=== PATIENT | male | born 1990 | race Caucasian/White ===

== ENCOUNTER 2017-04-22 09:32 | Emergency (ER) | payer OTHER ==
[~2017-04-22] VITALS: Ht 182.9 cm; Wt 99.8 kg
[~2017-04-22 09:32] MED LIST: ANAPROX DS550 MG PO; CLINDAMYCIN HC300 MG PO; CYCLOBENZAPRINE10 MG PO; FLEXERIL10 MG PO; HYDROCODON-ACE1 EAC8 PO; IBUPROFEN200 M1 PO; IBUPROFEN400 MG PO; IBUPROFEN600 MG PO; IBUPROFEN800 MG PO; MELOXICAM15 MG PO; NAPROSYN500 MG PO; NAPROXEN500 MG PO; NORCO 10-325 T1 EACH PO; NORCO 5-325 TA1 EACH PO; OXYCODONE-ACET1 EAC1 PO; PERCOCET 5-3251 EACH PO; TRAMADOL HCL50 MG PO; TYLENOL325 MG PO; ULTRAM50 MG PO; VICODIN 5-3001 EACH PO; WAL-PROFEN200 MG PO
== END 2017-04-22 09:49 | disposition home or self-care (01) ==
LOC: ED 09:32
DX: Z00.8 Encounter for other general examination (principal)